=== PATIENT | female | born 1940 | race African-American/Black ===

== ENCOUNTER 2020-09-08 14:05 | Emergency (ER) | payer OTHER ==
[~2020-09-08] VITALS: Ht 167.6 cm; Wt 73.0 kg
[~2020-09-08 14:05] MED LIST: AMLO10TA80 PO; ASPI-1160 PO; ATOR80TA PO; CALC0.25 PO; HYDRALAZINE PO; ISOS20TA8 PO; LASIX PO; LEVO88TA7 PO; LOSA100T32 PO; LOSARTAN; METO-411 PO; POTA10TA2 PO; insulin
[2020-09-08] MEDS ORDERED: ACETAMINOPHEN 325MG TABLET PO STA (16:26)
[2020-09-08] MEDS ORDERED: TRAMADOL 50MG TABLET PO NR (18:34)
[2020-09-08] MEDS ORDERED: TRAM-529 PO (18:37)
[2020-09-08] MEDS ORDERED: NAPR-681 PO (18:37)
[2020-09-08 18:55] VITALS: BP 155/65
== END 2020-09-08 19:22 | disposition home or self-care (01) ==
LOC: EDBD 14:05 → ER 14:05
DX: M25.561 Pain in right knee (principal); M17.11 Unilateral primary osteoarthritis, right knee; M71.21 Synovial cyst of popliteal space [Baker], right knee; I10 Essential (primary) hypertension; Z79.82 Long term (current) use of aspirin; W06.XXXA Fall from bed, initial encounter; Y93.89 Activity, other specified; Y92.013 Bedroom of single-family (private) house as the place of occurrence of the external cause
CPT/HCPCS: 73562; 73700; 99284